=== PATIENT | male | born 1955 | race Caucasian/White ===

== ENCOUNTER 2021-10-05 12:49 | Emergency (ER) | payer OTHER ==
[~2021-10-05] VITALS: Ht 170.2 cm; Wt 70.0 kg
[2021-10-05 13:55] VITALS: BP 173/96
[2021-10-05 14:00] VITALS: BP 158/98
[2021-10-05 14:15] VITALS: BP 146/92
[2021-10-05 15:02] LABS: URINE BILIRUBIN - DIPSTICK NEGATIVE (NEGATIVE); URINE BLOOD DIPSTICK NEGATIVE (NEGATIVE); URINE COLOR YELLOW; URINE GLUCOSE - DIPSTICK NEGATIVE (NEGATIVE); URINE KETONE NEGATIVE (NEGATIVE); URINE LEUK ESTERASE NEGATIVE (NEGATIVE); URINE PROTEIN - DIPSTICK NEGATIVE (NEG-TRACE); URINE SPECIFIC GRAVITY <=1.005; URINE UROBILINOGEN - DIPSTICK 0.2 E.U./dL (0.2)
[2021-10-05 15:12] LABS: URINE NITRITE - DIPSTICK NEGATIVE (Negative)
[2021-10-05 15:50] LABS: HEMATOCRIT 45.9 % (39.0-50.0); HEMOGLOBIN 15.8 g/dl (14.0-18.0); IMMATURE GRANULOCYTES 0.2 % (0.0-5.0); MEAN CELL VOLUME 91.1 fL CALC (80.0-100.0); MEAN CORPUSCULAR HGB 31.3 pG CALC (26.0-32.0); MEAN CORPUSCULAR HGB CONC 34.4 g/dL CAL (32.0-36.0); NEUT# 3.28 thou/uL (1.82-7.42); RED BLOOD COUNT 5.04 mill/uL (4.70-6.10); RED CELL DISTRI WIDTH 11.7 % (11.5-15.5)
[2021-10-05 16:11] LABS: ALBUMIN 4.9 g/dL (3.2-5.0); ALKALINE PHOSPHATASE 58 u/l (38-126); ANION GAP 9 (6-22 (CALC)); BILIRUBIN, TOTAL 0.5 mg/dL (0.0-1.4); BUN 13 mg/dL (8-23); BUN/CREATININE RATIO 13 (12-20 (CALC)); CARBON DIOXIDE 32 mmol/l (22-30); CHLORIDE 103 mmol/l (95-108); GFR > 60 ML/MIN (>=60 (CALC)); GFR FOR AFR.AMER. > 60 ML/MIN (>=60 (CALC)); POTASSIUM 3.9 mmol/l (3.5-5.1); SGOT/AST 33 u/l (19-48); SODIUM 140 mmol/l (137-146); TOTAL PROTEIN 8.2 g/dL (6.3-8.2)
[2021-10-05] MEDS ORDERED: TAMSULOSIN0.4 MG PO (17:11)
[2021-10-05] MEDS ORDERED: TRAMADOL HCL50 MG PO (17:15)
[2021-10-05 17:28] VITALS: BP 146/92
== END 2021-10-05 17:29 | disposition home or self-care (01) | DRG 726 ==
LOC: ED 12:49
PROVIDERS: Nurse Practitioner
DX: N40.1 Benign prostatic hyperplasia with lower urinary tract symptoms (principal); R33.8 Other retention of urine; E11.9 Type 2 diabetes mellitus without complications; D86.9 Sarcoidosis, unspecified; Z87.442 Personal history of urinary calculi

== ENCOUNTER 2024-06-28 08:58 | Emergency (ER) | payer MEDICARE, OTHER ==
[~2024-06-28] VITALS: Ht 170.2 cm; Wt 67.0 kg
[2024-06-28] VITALS (10 sets, daily range): BP systolic 105–155; BP diastolic 58–83
[~2024-06-28 08:58] MED LIST: LEVOFLOXACIN500MG PO; TAMSULOSIN0.4 MG PO; TORADOL PO; TRAMADOL HCL50 MG PO
[2024-06-28] MEDS ORDERED: KETOROLAC TROMETHAMINE 15 MG/ML SDV IV STA (09:09)
[2024-06-28] MEDS ORDERED: JARDIANCE10 MG PO (09:19)
[2024-06-28 09:25] LABS: BASO% 1.3 % (0-3); EOS% 3.8 % (0-8); HEMATOCRIT 42.2 % (39.0-50.0); HEMOGLOBIN 14.3 g/dl (14.0-18.0); IMMATURE GRANULOCYTES 0.5 % (0.0-5.0); LYMPH% 31.2 % (15-41); MEAN CELL VOLUME 91.5 fL CALC (80.0-100.0); MEAN CORPUSCULAR HGB CONC 33.9 g/dL CAL (32.0-36.0); MONO% 8.9 % (2-13); NEUT# 2.14 thou/uL (1.82-7.42); NEUT% 54.3 % (42-76); RED BLOOD COUNT 4.61 mill/uL (4.70-6.10); RED CELL DISTRI WIDTH 11.9 % (11.5-15.5)
[2024-06-28 09:26] LABS: URINE BILIRUBIN - DIPSTICK Negative (NEGATIVE); URINE BLOOD DIPSTICK Negative (NEGATIVE); URINE GLUCOSE - DIPSTICK 500 mg/dL (NEGATIVE); URINE KETONE Negative (NEGATIVE); URINE LEUK ESTERASE Negative (NEGATIVE); URINE NITRITE - DIPSTICK Negative (Negative); URINE PROTEIN - DIPSTICK Negative (NEG-TRACE); URINE UROBILINOGEN - DIPSTICK 0.2 E.U./dL (0.2)
[2024-06-28 09:33] LABS: URINE COLOR Yellow
[2024-06-28 09:53] LABS: ACT PARTIAL THROMBO TIME 24.3 SECONDS (20.0-32.5)
[2024-06-28 09:55] LABS: ALBUMIN 4.8 g/dL (3.2-5.0); ALKALINE PHOSPHATASE 46 u/l (38-126); ANION GAP 12 (6-22 (CALC)); BUN 21 mg/dL (8-23); BUN/CREATININE RATIO 24 (12-20 (CALC)); CARBON DIOXIDE 27 mmol/l (22-30); CHLORIDE 103 mmol/l (95-108); CREATININE 0.9 mg/dL (0.7-1.3); ESTIMATED GFR 94 ML/MIN (>=90 (CALC)); LIPASE 126 u/l (23-300); POTASSIUM 4.2 mmol/l (3.5-5.1); SGOT/AST 48 u/l (19-48); SODIUM 138 mmol/l (137-146); TOTAL PROTEIN 7.6 g/dL (6.3-8.2)
[2024-06-28 09:56] LABS: PROTHROMBIN TIME 10.8 SECONDS (9.0-12.5)
[2024-06-28 09:58] LABS: BILIRUBIN, TOTAL 0.8 mg/dL (0.2-1.3)
[2024-06-28] MEDS ORDERED: COLACE100 MG PO (14:17)
[2024-06-28] MEDS ORDERED: DICYCLOMINE HYD10 MG PO (14:17)
== END 2024-06-28 14:25 | disposition home or self-care (01) ==
LOC: ED 08:58
PROVIDERS: Emergency Medicine
DX: R10.13 Epigastric pain (principal); K59.00 Constipation, unspecified; E11.9 Type 2 diabetes mellitus without complications; Q63.1 Lobulated, fused and horseshoe kidney; Z79.84 Long term (current) use of oral hypoglycemic drugs; Z87.442 Personal history of urinary calculi
CPT/HCPCS: J1885; Q9967